=== PATIENT | male | born 1965 | race African-American/Black ===

== ENCOUNTER 2016-12-09 06:10 | Emergency (ER) | payer OTHER, MEDICARE ==
[~2016-12-09 06:10] MED LIST: CALCIUM + D 6001 TAB PO; DILANTIN ER 10100 MG PO; DILANTIN INFATA50 MG PO; LAMICTAL 100MG100 MG PO; LAMICTAL200 MG PO; LEVOTHYROXINE0.05 MG PO; OLANZAPINE15 MG PO; PRAVASTATIN20 MG PO; ZYPREXA10 MG PO; ZYPREXA15 MG PO; [UNRECOGNIZED DRUG - OTHER] PO
--- NOTE | 2016-12-09 06:53 | ED GI/GU/ABDOMINAL COMPLAINT ---
History of Present Illness General Chief Complaint: General Adult Stated Complaint: DISLOCATED G-TUBE Source: patient, old records, EMS Exam Limitations: poor historian Vital Signs & Intake/Output Vital Signs & Intake/Output Vital Signs Date Time Temp Pulse Resp B/P Pulse O2 O2 Flow FiO2 Ox Delivery Rate 12/09 0814 76 18 138/87 96 Room Air 12/09 0515 96.6 73 18 144/87 96 Room Air Allergies Coded Allergies: phenobarbital (Severe, SEIZURES 09/12/16) Reconcile Medications Calcium/Vitamin D (Calcium + D) 600 MG/200 IU TAB 1 TAB PO TID BONE (Reported ) Lamotrigine (Lamictal) 200 MG TAB 2 TAB PO BED TIME SEIZURE (Reported) Lamotrigine (Lamictal 100MG) 100 MG TABLET 3 TAB PO DAILY SEIZURES (Reported) Levothyroxine Sodium 50 MCG TABLET 1 TAB PO DAILY AC THYROID (Reported) Olanzapine 15 MG TAB 1 TAB PO AT BEDTIME MENTAL HEALTH (Reported) Olanzapine (Zyprexa) 15 MG TAB 1 TAB PO QPM MENTAL HEALTH (Reported) Phenytoin (Dilantin ER 100MG Cap) 100 MG CAPSULE 3 TAB PO BED TIME SEIZURE ( Reported) Phenytoin (Dilantin Infatabs) 50 MG CTB 1 TAB PO AT BEDTIME SEIZURES ( Reported) Pravastatin Sodium (Pravastatin) 20 MG TAB 1 TAB PO 1700 HLD (Reported) [VITAFORTE] 1 TAB PO DAILY PAIN (Reported) Triage Note: PT BROUGHT TO ER FOR FEEDING TUBE THAT HAS BEEN PARTIALLY PULLED OUT, TUBE APPEARS TO BE OUT APPROX 4 INCHES Triage Nurses Notes Reviewed? yes HPI: Patient presents for evaluation of a possibly displaced G-tube. Patient himself has no specific complaint at this time and is unable to provide substantive history. However. According to patient's RN, the patient's mother is coming to the emergency department and does not want him to be evaluated at [facility]. He typically obtains his medical care at [facility]. (AMENA BENSON,AALIYAH Sorenson) Past History Travel History Traveled to [place] past 21 day No Medical History Any Pertinent Medical History? see below for history Neurological: seizure, EPILEPSY EENT: NONE Cardiovascular: hypertension, hyperlipidemia Respiratory: NONE Gastrointestinal: NONE Hepatic: NONE Renal: NONE Musculoskeletal: NONE Psychiatric: insomnia Endocrine: NONE Blood Disorders: NONE Cancer(s): NONE [employer] SALES MANAGER/Reproductive: NONE Tetanus Vaccine: 02/21/15 Surgical History Surgical History: non-contributory Psychosocial History Who do you live with Patient/Self Services at Home Nursing What is your primary language Cypriot Tobacco Use: Never used Family History Family History, If Any: Not Significant Hx Contributory? No (AMENA BENSON,AALIYAH Sorenson) Review of Systems Review of Systems Constitutional: Reports: no symptoms. EENTM: Reports: no symptoms. Respiratory: Reports: no symptoms. Cardiovascular: Reports: no symptoms. GI: Reports: no symptoms. Genitourinary: Reports: no symptoms. Musculoskeletal: Reports: no symptoms. Skin: Reports: no symptoms. Neurological/Psychological: Reports: no symptoms. Hematologic/Endocrine: Reports: no symptoms. Immunologic/Allergic: Reports: no symptoms. All Other Systems: Reviewed and Negative (AMENA BENSON,AALIYAH Sorenson) Physical Exam Physical Exam Gastrointestinal: SEE BELOW Comments: Gen.: Well-nourished, well-developed, no acute respiratory distress. Head: Defect of the left cranium Eyes: Normal inspection bilaterally Ears: Normal inspection bilaterally Nose: Normal inspection Throat/mouth : Moist mucosa Neck: Supple, full range of motion, no goiter Heart: Regular rate and rhythm, no murmurs rubs or gallops Lungs: Clear to auscultation bilaterally with normal air entry Chest: Nontender Back: Normal range of motion Abdomen: Soft, nontender, nondistended, normal bowel sounds, G-tube in place Extremities: Normal range of motion grossly, equal radial pulses, no cyanosis clubbing or edema Neurologic: Cranial nerves grossly intact, speech is clear Skin: warm and dry Psychiatric: Calm, cooperative, no apparent delusions or hallucinations Core Measures ACS in differential dx? No Severe Sepsis Present: No Septic Shock Present: No (AMENA BENSON,AALIYAH Sorenson) Progress Differential Diagnosis: displaced G-tube Comments: 12/09/2016 6:52:55 AM It has been brought to my attention that the patient's mother has asked that we not evaluate her son here [facility] as he was to have been brought to [facility] instead. 12/09/2016 7:00:33 AM Patient signed out to Dr. Holly. (AMENA BENSON,AALIYAH Sorenson) Plan of Care: assess Gtube site Diagnostic Imaging: Viewed by Me: Radiology Read. Discussed w/RAD: Radiology Read. Radiology Impression: Unremarkable bowel gas pattern. A G-tube is in place. Contrast material is present within the stomach without evidence of extravasation. Initial ED EKG: none Comments: Case discussed with mom. Will assess Gtube patency and location. Abdominal binder placed to decrease patient interaction with Gtube. (ELAYNE BENSON,JESSICA) Departure Departure Condition: Stable Referrals: RIAN POPE MD (PCP/Family) Departure Forms: Customer Survey General Discharge Information (AMENA BENSON,AALIYAH Sorenson) Departure Time of Disposition: 0900 Disposition: ACUTE REHAB FACILITY Clinical Impression Primary Impression: Attention to G-tube (JESSICA HOLLY MD)
[2016-12-09 08:14] VITALS: BP 138/87
--- NOTE | 2016-12-09 08:46 | RADIOLOGY REPORT ---
EXAMINATION: ABDOMEN 1 VIEW CLINICAL INFORMATION: G-tube placement. COMPARISON: None. TECHNIQUE: A supine view of the abdomen with obtained following infusion of Gastrografin into the G-tube. FINDINGS: There are no dilated loops of small bowel. There are no air-fluid levels. A G-tube is in place. Contrast material is present within the stomach without evidence of extravasation. The visualized lung bases are clear. The osseous structures are unremarkable. IMPRESSION: Unremarkable bowel gas pattern. A G-tube is in place. Contrast material is present within the stomach without evidence of extravasation.
== END 2016-12-09 10:56 ==
LOC: ERH 06:10
DX: Z43.1 Encounter for attention to gastrostomy (principal)
CPT/HCPCS: 74000